=== PATIENT | female | born 1940 | race Caucasian/White ===

== ENCOUNTER 2018-11-01 12:44 | Emergency (ER) | payer OTHER ==
[~2018-11-01] VITALS: Ht 162.6 cm; Wt 72.6 kg
[2018-11-01 12:55] VITALS: BP 141/82
[2018-11-01] MEDS ORDERED: KETOROLAC TROMETH 30 MG/ML 1ML VIAL IM ONE (16:15)
== END 2018-11-01 17:58 | disposition home or self-care (01) ==
LOC: ER 12:49
DX: S02.2XXA Fracture of nasal bones, initial encounter for closed fracture (principal); I10 Essential (primary) hypertension; R42 Dizziness and giddiness; Z90.710 Acquired absence of both cervix and uterus; Z88.1 Allergy status to other antibiotic agents; W01.0XXA Fall on same level from slipping, tripping and stumbling without subsequent striking against object, initial encounter; Y93.89 Activity, other specified; Y92.89 Other specified places as the place of occurrence of the external cause; Y99.8 Other external cause status
CPT/HCPCS: 70450; 70486; 99284; J1885